=== PATIENT | female | born 1955 | race Caucasian/White ===

== ENCOUNTER 2022-06-07 13:42 | Inpatient (IN) | payer MEDICARE, OTHER ==
[~2022-06-07] VITALS: Ht 167.6 cm; Wt 43.7 kg
[2022-06-07] MEDS ORDERED: HALOPERIDOL LACTATE 5 MG/1 ML VIAL ONE ×2 (13:45→23:08)
[2022-06-07 14:05] LABS: HEMATOCRIT 41.6 % (31.2-41.9); MEAN CORPUSCULAR HEMOGLOBIN 32.4 uug (24.7-32.8); MEAN CORPUSCULAR VOLUME 93.5 fL (75.5-95.3); PLATELET COUNT (AUTO) 313 K/uL (179-408)
[2022-06-07 14:11] LABS: CARBON DIOXIDE 27 mmol/L (21-32); CHLORIDE 107 mmol/L (98-107); GLUCOSE 167 mg/dL (74-106); POTASSIUM 3.8 mmol/L (3.5-5.1); UREA NITROGEN, BLOOD 15 mg/dL (7-18)
[2022-06-07 14:17] LABS: ALANINE AMINOTRANSFERASE 21 U/L (14-59); ALKALINE PHOSPHATASE 89 U/L (50-136); ASPARTATE AMINOTRANSFERASE 28 U/L (15-37); BILIRUBIN,TOTAL 0.4 mg/dL (0.2-1.0); TOTAL PROTEIN, SERUM 7.5 g/dL (6.4-8.2)
--- NOTE | 2022-06-07 19:42 | NUR ---
Alicia silverio called and will accept the pt for admission.
--- NOTE | 2022-06-07 20:18 | NUR ---
pt with 1 to 1 sitter.
--- NOTE | 2022-06-07 20:41 | NUR ---
pt returned from cat scan.
[2022-06-07] MEDS ORDERED: HALOPERIDOL LACTATE 5 MG/1 ML VIAL IM ONE (23:00)
--- NOTE | 2022-06-07 23:31 | NUR ---
report given to jefry BURCIAGA pt to go to room 330A psych overflow.
[2022-06-08] MEDS ORDERED: MAG HYDROX/AL HYDROX/SIMETH 30 ML LIQUID UDC PO PRN (00:45)
[2022-06-08] MEDS ORDERED: MAGNESIUM HYDROXIDE 30 ML LIQUID UDC PO PRN (00:45)
[2022-06-08] MEDS ORDERED: ACETAMINOPHEN 325 MG TABLET PO PRN (00:45)
--- NOTE | 2022-06-08 00:48 | NUR ---
pt transported to room 330 a on third floor for psych overflow. PATRICA Ta aware of pt's arrival, GIANNA Donis stays with the pt.
--- NOTE | 2022-06-08 00:49 | NUR ---
Received a 66 year old female from er . Pt admitted on 5150 for Gravely disabled. According to the hold. Pt acting in bizarre manner, seeing and talking of things that not real. Pt yelling and screaming and unable to care for her own basic needs or provide for her own basic needs or provide for her own feeding and clothing. Pt concurs with the hold. Upon face to face assessment, pt appears to reflect what is on the hold. pt appears to be anxious ,guarded,dishelved, tense and agitated. Pt is a poor historian and poor insight. Oriented patient about the unit rules. Patient is confused and therefore unable to comprehend to the unit rules or sign paperwork, co-signed with Charge nurse. Vital signs stable. Pt skin assessed. Pt is able to ambulate with standby assist . FDC assessment done. She was anxious and needs redirection from staff. Personal belongings completed.Safety initiated. 1:1 sitter for safety. Advisement and patient rights handbook given. Under the care of Dr. Mina/ Eliud TRAIN CONDUCTOR . Fall precautions observed. Will closely monitor.
[2022-06-08 02:44] VITALS: BP 142/79
--- NOTE | 2022-06-08 06:23 | NUR ---
Pt slept 30 minutes H. Pt in no acute distress. 1: 1 sitter for safety. Pt has episodes of hallucination. Pt needs reorientation. Safety and comfort provided. All needs are met. Will endorse to incoming nurse for continuity of care.
[2022-06-08 06:44] LABS: *BILIRUBIN,URIN NEGATIVE (NEGATIVE); *CLARITY,URINE CLEAR (CLEAR); *COLOR,URINE YELLOW (YELLOW); *KETONES,URINE NEGATIVE (NEGATIVE); *UROBILINOGEN,URINE 0.2 E.U./dl (NORMAL); LEUKOCYTE ESTERASE ,URINE NEGATIVE (NEGATIVE); NITRITE, URINE NEGATIVE (NEGATIVE); UGLUCOSE NEGATIVE (NEGATIVE)
--- NOTE | 2022-06-08 06:47 | NUR ---
Notify Tia Delgado sister of the pt that pt is here on room 330 and vising hours here at the hospital. Called [facility] that pt other paperworks need to be fix. Phoebe Campuzano aware. Will endorse to dayshift nurse.
[2022-06-08 07:09] LABS: *BLOOD, URINE TRACE (NEGATIVE); WBC,URINE 0-3 /HPF (0-3)
[2022-06-08 07:10] LABS: BACTERIA,URINE NONE SEEN /HPF (NONE SEEN); SQUAMOUS EPITHELIAL CELL,UR FEW /HPF (NONE SEEN)
[2022-06-08 07:30] VITALS: BP 125/68
[2022-06-08 07:32] LABS: *AMPHETAMINE, URINE NEGATIVE (NEGATIVE); *CANNABINOID, URINE NEGATIVE (NEGATIVE); *COCCAINE, URINE NEGATIVE (NEGATIVE); *OPIATE, URINE NEGATIVE (NEGATIVE); *PHENCYCLIDINE SCREEN,URINE NEGATIVE (NEGATIVE)
[2022-06-08] MEDS: LORAZEPAM 1 MG TABLET PO PRN ×2 (11:56→22:41)
[2022-06-08] MEDS ORDERED: OLANZAPINE 10 MG VIAL IM ONE ×2 (12:15→18:00)
--- NOTE | 2022-06-08 12:33 | NUR ---
Patient aggressive and attempting to jump on bed, whilst yelling and screaming at staff. Dr. Mina notified. Appropriate orders placed. Zyprexa administered. Patient now resting in bed.
[2022-06-08] MEDS: GLUCERNA SHAKE 237 ML CAN PO SCH ×2 (14:15→16:08)
[2022-06-08] MEDS: PROTEIN SUPPLEMENT (PROSTAT) 30 ML LIQUID PO SCH ×2 (14:15→16:08)
[2022-06-08] MEDS: QUETIAPINE FUMARATE 25 MG TABLET PO SCH ×2 (14:19→20:53)
[2022-06-08 17:04] VITALS: BP 159/80
--- NOTE | 2022-06-08 18:27 | NUR ---
Patient confused and needing constant reorientation. Patient hallucinating during shift, and attempting to get out of room. Patient caught on top of bed yelling at staff twice during shift. Dr. Mina notified and appropriate medicinal interventions performed. Bed left in lowest position. Comfort measures provided. Patient is 1:1. Will endorse information to PM nurse.
--- NOTE | 2022-06-08 19:55 | NUR ---
RECEIVED PATIENT IN BED. AWAKE, ALERT, ORIENTED TO SELF. NOTED TO BE STARING IN TO SPACE. APPEARS TO BE CALM AT THIS TIME. REORIENTED PATIENT ACCORDINGLY. SISTER AND SITTER AT BED SIDE. PATIENT IS 1:[address] WILL CONTINUE TO MONITOR.
[2022-06-08 20:00] VITALS: BP 126/76
--- NOTE | 2022-06-08 21:40 | NUR ---
STOOL COLLECTED AND SENT DOWN TO LAB. Addendum: 06/09/22 at 0032 by JAE COPE RN DISREGARD WRONG PATIENT
[2022-06-09 04:00] VITALS: BP 122/68
--- NOTE | 2022-06-09 05:55 | NUR ---
PATIENT SLEPT POORLY LAST NIGHT, WITH FREQUENT EPISODES OF RESTLESSNESS AND AGITATION. FREQUENT REORIENTATION DONE. SAFETY AND ASPIRATION PRECAUTIONS DONE. WILL ENDORSE TO DAY SHIFT.
[2022-06-09] MEDS: GLUCERNA SHAKE 237 ML CAN PO SCH ×3 (08:00→18:02)
[2022-06-09] MEDS: QUETIAPINE FUMARATE 25 MG TABLET PO SCH ×4 (09:24→20:41)
[2022-06-09] MEDS: PROTEIN SUPPLEMENT (PROSTAT) 30 ML LIQUID PO SCH ×2 (09:24→18:02)
--- NOTE | 2022-06-09 12:32 | NUR ---
Patient to be transferred to MHU when beds become available. Odette RN notified and will contact when bed becomes available.
--- NOTE | 2022-06-09 14:59 | NUR ---
Patient transferred to MHU.
--- NOTE | 2022-06-09 15:00 | NUR ---
Received pt from 3rd floor [facility]. Pt accepted to room 139B. Pt is anxious, uncooperative and confused. Appears to be having visual hallucinations. MD notified of pt arrival to unit.
--- NOTE | 2022-06-09 15:08 | NUR ---
RONALDO Initial Discharge Note: Pt currently resides at her sister, Tia's home. Per Tia ([phone]), pt cannot return home under her care due to pt's current condition. Tia is agreeable for RONALDO and MD to help pt with continuation of care at a retirement facility. RONALDO will continue to work with pt, family and MD to ensure a safe and proper discharge plan.
--- NOTE | 2022-06-09 15:10 | NUR ---
RONALDO Family Contact: RONALDO contacted pt's sister, Tia ([phone]), and she stated that pt cannot return home under her care due to pt's current condition. Tia is agreeable for RONALDO and to help pt with continuation of care at a fdc facility.
--- NOTE | 2022-06-09 15:22 | NUR ---
pt switched to bed 139A for safety, pt has been given a shower and placed in azul chair. will continue to monitor.
[2022-06-09 16:00] VITALS: BP 128/81
--- NOTE | 2022-06-09 16:34 | NUR ---
GPS: CALLED [facility] FOR PT RECORDS OF ALL DIAGNOSTIC EXAM PERFORMED. PER EMPLOYEE, THEY NEED TO RECEIVE AN AUTHORIZATION LETTER FAX TO THEM AT [phone]. PLACE STAT ON THE FAX.
[2022-06-09] MEDS: LORAZEPAM 1 MG TABLET PO PRN (18:01)
[2022-06-09 20:23] VITALS: BP 102/70
[2022-06-09] MEDS: ZOLPIDEM 5 MG TABLET PO PRN (21:27)
--- NOTE | 2022-06-10 02:04 | NUR ---
Received patient in the Amelia chair, anxious, restless and confused. The patient took some oral fluids but was only willing to eat a few bites of a sandwich. PRN medications were given. The patient was assisted to the bathroom and to bed but became increasingly agitated and stood on top of the bed, fighting with the staff. At that point , the patient was put back in the chair for a short period of time and tolerated it well. At this time the patient is in bed with a one to one sitter and is sleeping soundly. Safety Stratiges are in place and continuing to monitor the patient closely.
[2022-06-10 07:30] VITALS: BP 118/79
[2022-06-10] MEDS: QUETIAPINE FUMARATE 25 MG TABLET PO SCH ×4 (09:00→21:28)
[2022-06-10] MEDS: LORAZEPAM 1 MG TABLET PO PRN ×3 (09:01→21:03)
--- NOTE | 2022-06-10 09:01 | NUR ---
GPS: RECEIVED PT ON BED WITH A SITTER, CONFUSED, WITH INVOLUNTARY ARM MOVEMENT NOTED. PSYCHIATRIST SPOKE WITH PT, ASKING PT TO SIGN AUTHORIZATION FORM TO GATHER ESSENTIAL DIAGNOSTIC TEST FROM [facility] WHERE PT HAD ALL THE TEST DONE PER SISTER. PT OFFERED THE AM MEDS AND ATIVAN TO CALM DOWN PT, PT REFUSED AND SPIT THE MEDS. PT WITH BLANK STARE, UNCONTROLLABLE SHAKING. WILL MONITOR FOR SAFETY.
[2022-06-10] MEDS: PROTEIN SUPPLEMENT (PROSTAT) 30 ML LIQUID PO SCH ×2 (09:30→17:00)
[2022-06-10] MEDS: GLUCERNA SHAKE 237 ML CAN PO SCH ×3 (09:30→17:00)
[2022-06-10] MEDS ORDERED: OLANZAPINE 10 MG VIAL IM ONE (09:45)
--- NOTE | 2022-06-10 11:16 | NUR ---
GPS: PT RECEIVED ON BED WITH SITTER. RECEIVED A REPORT THAT LAST NIGHT PT STOOD UP ON BED AND HAD BIZARRE BEHAVIOR. PT REFUSED THE AM MEDS AND EVEN OFFERED ATIVAN PO. PSYCHIATRIST WAS IN THE UNIT WHEN PT BECAME VERY CONFUSED, INCOHERENT, DISORIENTED, AGITATED, SCREAMING AND YELLING IN THE ROOM. SEEN PT SO ANXIOUS AND HAVING UNCONTROLLABLE BEHAVIOR AND MIGHT COMPROMISE THE SAFETY OF PT. ENVIRONMENTAL MODIFICATION AND 1:1 COMPANIONSHIP MADE. PSYCHIATRIST ORDERED ZYPREXA 5MG IM AND TOLERATED WELL BY PT, WILL CONTINUE TO MONITOR AND EMPHASIZE SAFETY PRECAUTIONS.
--- NOTE | 2022-06-10 12:27 | NUR ---
GPS: PSYCHIATRIST ISSUED 5250 HOLD FOR [facility] HEARING WITH PROBABLE CAUSE OF GRAVE DISABILITY ONLY. PT GIVEN A COPY BUT PT WAS CONFUSED.
--- NOTE | 2022-06-10 18:06 | NUR ---
GPS: CRISTEL, SISTER OF PT CAME AND PER PSYCHIATRIST TO TRY TO ACQUIRE AN AUTHORIZATION FROM THE PT TO GET MEDICAL RECORDS FROM [facility]. EXPLAINED TO PT REGARDING THE AUTHORIZATION AND WAS ABLE TO OBTAIN A VERBAL AUTHORIZATION AGREEMENT FROM PT, WITNESSED BY SISTER CRISTEL WITH SIGNATURE ON FORM, ALSO WITNESSED BY SYSTEMS ANALYSIS MANAGER AND ANOTHER STAFF. PT WITH 3 VISITORS CAME. PT IS CALM WHILE ON THE PROCESS OF OBTAINING THE VERBAL AUTHORIZATION.
--- NOTE | 2022-06-10 23:21 | NUR ---
RECEIVED PATIENT IN HER ROOM IN BED. SHE IS NOTED SLEEPING BUT EASILY AROUSABLE. SHE IS NOTED A/O X 1 CALM BUT CONFUSED. SHE IS UNABLE TO HAVE A MEANINGFUL CONVERSATION WITH THIS AUTOMOBILE TRAVEL CLUB COUNSELOR. PATIENT'S V/S ARE STABLE. SAFETY AND FALL PRECAUTION ARE IN PLACE. SHE IS REASSURED FOR HER SAFETY. PO FLUIDS AND SNACKS WERE GIVEN TO PATIENT. WILL CONTINUE TO MONITOR.
[2022-06-11] MEDS: LORAZEPAM 1 MG TABLET PO PRN ×3 (04:12→19:43)
--- NOTE | 2022-06-11 06:22 | NUR ---
Patient slept for approx 8hrs through the night. She continue confused. Patient unable to have a meaningful conversation with this technical report writer. She was able to drink 1/2 bottle of glucerna but refused anything else. Will continue to monitor.
[2022-06-11] MEDS ORDERED: HALOPERIDOL LACTATE 5 MG/1 ML VIAL IM STA (07:47)
--- NOTE | 2022-06-11 07:54 | NUR ---
LATE ENTRY: Just entered verbal order received from ER Dr. Cobb for 5mg Haldol IM given in ER on 06/07/22 at 1345. Med administered at 1350, 06/07/22.
[2022-06-11 08:09] VITALS: BP 112/74
[2022-06-11] MEDS: GLUCERNA SHAKE 237 ML CAN PO SCH ×3 (08:57→16:51)
[2022-06-11] MEDS: QUETIAPINE FUMARATE 25 MG TABLET PO SCH ×4 (08:57→20:34)
[2022-06-11] MEDS: PROTEIN SUPPLEMENT (PROSTAT) 30 ML LIQUID PO SCH ×2 (08:57→16:51)
[2022-06-11 10:53] LABS: HEMATOCRIT 45.5 % (31.2-41.9); MEAN CORPUSCULAR HEMOGLOBIN 31.8 uug (24.7-32.8); PLATELET COUNT (AUTO) 278 K/uL (179-408)
[2022-06-11 11:05] LABS: BILIRUBIN,DIRECT 0.2 mg/dL (0.0-0.2); BILIRUBIN,TOTAL 0.8 mg/dL (0.2-1.0); CREATININE 0.8 mg/dL (0.6-1.3); MAGNESIUM 2.1 mg/dL (1.8-2.4); PHOSPHOROUS 4.3 mg/dL (2.5-4.9); POTASSIUM 3.7 mmol/L (3.5-5.1); TOTAL PROTEIN, SERUM 7.9 g/dL (6.4-8.2)
--- NOTE | 2022-06-11 16:00 | NUR ---
Pt was presenting with pulse rate 130, BP within normal limits. Body jerks/ twitching and restlessness visible. MD Weiss notified. EKG completed per MD order. Sinus tachycardia noted. MD notified of results. Will administer medications and reassess.
[2022-06-11 16:14] VITALS: BP 114/79
[2022-06-11] MEDS ORDERED: LORAZEPAM 2 MG/1 ML VIAL IM ONE (16:45)
--- NOTE | 2022-06-11 16:45 | NUR ---
Received verbal order for pt to receive Ativan 1mg IM one time dose for agitation and aggressive behavior. Pt spits out and punches back at sister at bedside and nursing staff. Will reassess pt and closely monitor.
[2022-06-11] MEDS ORDERED: IV NORMAL SALINE 500 ML IV ONE ×2 (19:00→23:15)
--- NOTE | 2022-06-11 19:03 | NUR ---
IV NS 500cc bolus administered per MD Weiss. Per safety protocol, sitter at bedside at this time for the duration of IV infusion. Will reassess HR after completion of bolus and notify .
--- NOTE | 2022-06-11 19:48 | NUR ---
IV bolus completed, rechecked pulse rate. 112bpm. Notified MD. IV access still in place but IV pump removed from pt room. Endorsed to night time nanny to closely monitor and reassess pulse rate in 30 minutes and notify of results to MD. IV in place until Dr. Weiss further instructs with plan of care.
--- NOTE | 2022-06-11 21:00 | NUR ---
Received patient in her bed, she is noted confused, restless, fidgeting, she is unable to have a meaningful conversation with this information writer. IV bolus 500ml NS was done at about 1945. Ativan 1mg po prn was given for restless. she was also given seroquel 25mg QHS. Her B/S were rechecked and are as followed: B/P 138/75 HR 125 O2 sat 95%. Alicia Weiss was notified and she stated to recheck her HR when patient is calm or sleeping. Will continue to push and encourage to drink fluids. will continue to monitor closely.
--- NOTE | 2022-06-11 22:15 | NUR ---
patient noted less restless but still fidgeting. her HR is between 122 to 127. Alicia Weiss notified and she stated to rechecks when patient is sleeping. will continue to monitor.
--- NOTE | 2022-06-11 22:47 | NUR ---
patient is calm and sleeping. her HR is 118. DL Weiss was notified and new order obtained to administer another 500ml NS bolus. Order noted. will continue to monitor.
[2022-06-12] MEDS: ZOLPIDEM 5 MG TABLET PO PRN (00:17)
--- NOTE | 2022-06-12 00:45 | NUR ---
IVF 500ml NS Bolus one time order was done, Patient tolerated well, She is no distress. HR continue between 117 to 120bpm. Will continue to monitor closely.
[2022-06-12] MEDS: GLUCERNA SHAKE 237 ML CAN PO SCH ×3 (08:00→16:27)
[2022-06-12] MEDS ORDERED: risperiDONE 0.5 MG TABLET PO SCH ×2 (09:00→21:00)
[2022-06-12] MEDS: PROTEIN SUPPLEMENT (PROSTAT) 30 ML LIQUID PO SCH ×2 (09:00→16:27)
[2022-06-12] MEDS: risperiDONE-M 0.5 MG TAB.RAPDIS PO SCH ×2 (09:38→16:26)
--- NOTE | 2022-06-12 11:07 | NUR ---
GPS: Nursing Notes: Regarding Fax To [facility]: Staff called [facility], Medical Record, spoke with Alia and stated that they never received a request from [facility] regarding patient's medical records, Staff faxed to [facility], Medical Records - fax # , phone # , option # [phone], continue with treatment plan.
[2022-06-12] MEDS ORDERED: levETIRAcetam IV 1,500 MG in IV DEXTROSE 5% 100 ML IV SCH (12:15)
--- NOTE | 2022-06-12 12:25 | NUR ---
GPS: Nursing Notes: Second request for [facility]: Staff faxed to [facility], request for lumbar puncture and discharge notes per DL Weiss order at fax # ; office # option # [phone], continue with treatment plan.
[2022-06-12] MEDS ORDERED: levETIRAcetam 500 MG TABLET PO ONE (13:00)
--- NOTE | 2022-06-12 14:42 | NUR ---
GPS: Nursing Notes: Thought Disorder: Patient is awake and responding to her name by moving her head when calling her, resistant with nursing care, paranoid behavior, responding to internal stimuli by grabbing the air and shouting to unseen others, internally preoccupied, refusing her medications, refusing to eat or drink, spitting out her medication, spitting out her food, closing her mouth and tightening her lips, gets easily irritable and paranoid when assisting her, redirected during shift, but unable to follow directions, overly disruptive by shouting at times, unable to formulate a viable plan for self care, unkempt appearance, continue to monitor for safety, continue with treatment plan.
[2022-06-12] MEDS ORDERED: levETIRAcetam 500 MG/5 ML LIQUID UDC PO ONE (15:30)
[2022-06-12 16:18] VITALS: BP 152/78
[2022-06-12 19:59] VITALS: BP 139/82
[2022-06-12] MEDS: ATORVASTATIN 20 MG TABLET PO SCH (20:18)
[2022-06-12] MEDS: MIRTAZAPINE 15 MG TABLET PO SCH (20:19)
[2022-06-12] MEDS ORDERED: risperiDONE-M 0.5 MG TAB.RAPDIS PO SCH (21:00)
[2022-06-12] MEDS: levETIRAcetam 500 MG/5 ML LIQUID UDC PO SCH (21:17)
[2022-06-12] MEDS ORDERED: levETIRAcetam 500 MG TABLET PO SCH (22:00)
--- NOTE | 2022-06-13 04:03 | NUR ---
GPS NOTES: Patient received in bed, awake and staring at the ceiling responding to internal stimuli. Patient responsive to name, A&0x1. She is noted to be paranoid and fearful when approached, mumbling incoherently. Unable to make meaningful conversation as she is pre occupied with hallucinations and delusions. Patient is noted to be combative when providing care by staff. Patient unable to take directions and be presented with reality. Medications administered was spat out. Attempt to give fluids however patient is resistant. Patient when awake is agitated, constantly moving around her bed, removing clothes and kicking the wall. Unable to give PRN as order d/t patient refusal with medications. patient intermittently sleeping during shift. No distress observed. Frequent monitoring in place, side rails up for safety.
[2022-06-13 07:30] VITALS: BP 126/96
[2022-06-13] MEDS: GLUCERNA SHAKE 237 ML CAN PO SCH ×3 (08:00→16:02)
[2022-06-13] MEDS: risperiDONE-M 0.5 MG TAB.RAPDIS PO SCH ×3 (08:15→20:25)
[2022-06-13] MEDS: levETIRAcetam 500 MG/5 ML LIQUID UDC PO SCH ×2 (08:15→20:20)
[2022-06-13] MEDS: PROTEIN SUPPLEMENT (PROSTAT) 30 ML LIQUID PO SCH ×2 (08:15→16:03)
--- NOTE | 2022-06-13 12:17 | NUR ---
GPS: Nursing Notes: Thought Disorder: Patient is awake and responding to her name by looking when calling her name, impaired judgment, poor insight, disorganized, restless on her bed, episodes of kicking the wall, internally preoccupied, mumbling to unseen others, refusing to eat and drink, paranoid behavior, unpredictable behavior, unable to formulate a viable plan for self care, disruptive by shouting at times, spitting her food, closing her mouth and tightening her lips, talking incoherently, staring at the ceiling at times, continue to monitor for safety, continue with treatment plan.
--- NOTE | 2022-06-13 14:27 | NUR ---
Firearms Report: Private Branch Exchange Installer completed and submitted a [employer] firearms report for 5150 grave disability certifications. A copy of report has been placed in patient chart.
[2022-06-13] MEDS: LORAZEPAM 1 MG TABLET PO PRN ×2 (14:29→21:29)
[2022-06-13 15:28] VITALS: BP 114/90
[2022-06-13 20:01] VITALS: BP 132/88
[2022-06-13] MEDS: ATORVASTATIN 20 MG TABLET PO SCH (20:21)
[2022-06-13] MEDS: MIRTAZAPINE 15 MG TABLET PO SCH (20:21)
--- NOTE | 2022-06-14 05:22 | NUR ---
Patient slept 3.30 hours. Most of the night patient was restless , kicking and moving around in the bed. At start of the shift, this marine underwriter was able to give a small amount oral fluids to the patient with assistance and encouragement. Edilia care provided as needed . The patient is combative with the staff providing care. Safety stratiges are in place and frequent monitor continues. Poor intake of food and fluids noted. Communication is a struggle and the patient is unable to answer questions or let needs known. VS are stable at this time.
[2022-06-14 06:37] LABS: HEMATOCRIT 46.4 % (31.2-41.9); MEAN CORPUSCULAR HEMOGLOBIN 31.4 uug (24.7-32.8); MEAN CORPUSCULAR VOLUME 93.3 fL (75.5-95.3); PLATELET COUNT (AUTO) 200 K/uL (179-408)
[2022-06-14 06:48] LABS: CREATININE 0.7 mg/dL (0.6-1.3); MAGNESIUM 2.2 mg/dL (1.8-2.4); PHOSPHOROUS 3.7 mg/dL (2.5-4.9); POTASSIUM 3.6 mmol/L (3.5-5.1)
[2022-06-14 07:30] VITALS: BP 116/68
[2022-06-14] MEDS: GLUCERNA SHAKE 237 ML CAN PO SCH ×3 (08:00→17:00)
[2022-06-14] MEDS: PROTEIN SUPPLEMENT (PROSTAT) 30 ML LIQUID PO SCH ×2 (09:00→17:00)
[2022-06-14] MEDS: risperiDONE-M 0.5 MG TAB.RAPDIS PO SCH ×3 (09:38→21:00)
[2022-06-14] MEDS: levETIRAcetam 500 MG/5 ML LIQUID UDC PO SCH ×2 (09:38→21:00)
[2022-06-14 16:00] VITALS: BP 118/94
--- NOTE | 2022-06-14 16:55 | NUR ---
Received patient awake in her room. Pt. is anxious, confused, disoriented, agitated and combative at times, withdrawn, flat, mute. Patient refuses meals and ensure. Total care. Reassurance given. Fall and precautions implemented.
[2022-06-14] MEDS ORDERED: IV NS 1000 ML 1,000 ML IV ONE (17:30)
--- NOTE | 2022-06-14 18:45 | NUR ---
Honey Blender was informed at 18:38 about patient's physical and mental status of being confused, flat, not eating, or taking fluids, also labs were informed and INTERIOR DESIGN ASSISTANT will see the patient later for further orders.
--- NOTE | 2022-06-14 20:00 | NUR ---
Received patient in the hallway. She is noted sitting in a bienvenido chair. Patient is confused. She is responsive in no acute distress. V/S are stable. she is unable to have a meaningful conversation this health underwriter. Safety and fall precaution are in place. will continue to monitor.
--- NOTE | 2022-06-14 20:15 | NUR ---
patient was taken to radiology dept to have a CT scan of the brain. She was accompanied by CASH CHECKER.
[2022-06-14 20:22] VITALS: BP 104/70
--- NOTE | 2022-06-14 20:30 | NUR ---
Patient retuned to the unit. she had a CT scan done. Will continue to monitor.
[2022-06-14] MEDS: MIRTAZAPINE 15 MG TABLET PO SCH (21:00)
[2022-06-14] MEDS: ATORVASTATIN 20 MG TABLET PO SCH (21:00)
--- NOTE | 2022-06-14 21:45 | NUR ---
New IV was placed on her left hand posterior aspect. IV NS infusing at 100ml/hr per Dr Chirinos. V/S: B/P 105/65mmhg HR 117 and O2 sat 99%. patient in no acute distress. will continue to monitor.
--- NOTE | 2022-06-14 22:00 | NUR ---
Patient refused all her QHS medication. she refused PO fluids and snacks. IV NS is infusing. patient in no acute distress. will continue to monitor.
[2022-06-14 23:23] VITALS: BP 107/77
--- NOTE | 2022-06-15 00:12 | NUR ---
NS IS INFUSING. PATIENT IS NOTED RESTLESS. HER V/S ARE B/P 98/68, HR 118 AND O2SAT 96% WILL CONTINUE TO MONITOR.
--- NOTE | 2022-06-15 02:37 | NUR ---
IV Fluids NS continue infusing, patient in no acute distress. V/S: B/P 110/72, HR 108, O2 sat 97%. will continue to monitor.
[2022-06-15 03:49] LABS: *BILIRUBIN,URIN 1+ (NEGATIVE); *BLOOD, URINE 2+ (NEGATIVE); *CLARITY,URINE CLOUDY (CLEAR); *COLOR,URINE YELLOW (YELLOW); *KETONES,URINE 1+ (NEGATIVE); *UROBILINOGEN,URINE 0.2 E.U./dl (NORMAL); LEUKOCYTE ESTERASE ,URINE 1+ (NEGATIVE); NITRITE, URINE NEGATIVE (NEGATIVE); PH,URINE 5.5 (5.0-8.0); UGLUCOSE NEGATIVE (NEGATIVE)
[2022-06-15 05:31] LABS: BACTERIA,URINE FEW /HPF (NONE SEEN); RBC,URINE 50-80 /HPF (0-3); SQUAMOUS EPITHELIAL CELL,UR FEW /HPF (NONE SEEN)
[2022-06-15 07:30] VITALS: BP 119/67
[2022-06-15] MEDS: GLUCERNA SHAKE 237 ML CAN PO SCH ×2 (08:00→12:00)
[2022-06-15] MEDS: risperiDONE-M 0.5 MG TAB.RAPDIS PO SCH (09:00)
[2022-06-15] MEDS ORDERED: CEFTRIAXONE 1 G VIAL IM ONE ×2 (09:00→10:00)
[2022-06-15] MEDS: levETIRAcetam 500 MG/5 ML LIQUID UDC PO SCH (09:00)
[2022-06-15] MEDS: PROTEIN SUPPLEMENT (PROSTAT) 30 ML LIQUID PO SCH (09:00)
--- NOTE | 2022-06-15 13:59 | NUR ---
PATIENT IS CONFUSED AND DISORIENTED ,WILL TRANSFER TO MED/SURG FOR IV HYDRATION AND ANTIBIOTIC,REPORT GIVEN TO RN.
--- NOTE | 2022-06-15 14:32 | NUR ---
RONALDO Family Contact: RONALDO spoke with pt's sister, Tia ([phone]) who is agreeable to a correction facility upon discharge due to Tia stating that she cannot take care of the pt under her current condition upon discharge. RONALDO will continue to work with Tia and to refer pt to facilities for safe and proper continuation of care.
[2022-06-15] MEDS ORDERED: RISP1TAB7 PO (15:54)
[2022-06-15] MEDS ORDERED: LORA0.5T48 PO (15:54)
[2022-06-15] MEDS ORDERED: PROT946L PO (15:54)
[2022-06-15] MEDS ORDERED: MIRT-121 PO (15:54)
[2022-06-15] MEDS ORDERED: NUT.237L36 PO (15:54)
[2022-06-15] MEDS ORDERED: MAG-79 PO (15:54)
[2022-06-15] MEDS ORDERED: MAGN400O6 PO (15:54)
[2022-06-15] MEDS ORDERED: CEPH500C2 PO (15:54)
[2022-06-15] MEDS ORDERED: ATOR20TA PO (15:54)
[2022-06-15] MEDS ORDERED: RISP0.5T5 PO (15:54)
[2022-06-15] MEDS ORDERED: ACET-2154 PO (15:54)
[2022-06-15] MEDS ORDERED: LEVE1000 PO (15:54)
[2022-06-16] MEDS ORDERED: CEphaleXIN 500 MG CAPSULE PO SCH (09:00)
[2022-06-17] MEDS ORDERED: RISP1TAB7 PO (16:48)
[2022-06-17] MEDS ORDERED: PANT40TA2 PO (16:48)
[2022-06-17] MEDS ORDERED: LEVE1000 PO (16:48)
[2022-06-17] MEDS ORDERED: MIRT-121 PO (16:48)
[2022-06-18] MEDS ORDERED: LORA-259 PO (07:29)
== END 2022-06-15 14:06 | disposition short-term general hospital (02) | DRG 885 ==
LOC: ER 13:43 → GPSOV3 23:42 → GPS 06-09 15:04
PROVIDERS: ADMIT Psychiatry & Neurology Psychiatry; ATTEND Nurse Practitioner Acute Care
DX: F29 Unspecified psychosis not due to a substance or known physiological condition (principal); F05 Delirium due to known physiological condition; N17.9 Acute kidney failure, unspecified; G92.9 Unspecified toxic encephalopathy; E44.0 Moderate protein-calorie malnutrition; N39.0 Urinary tract infection, site not specified; Z68.1 Body mass index [BMI] 19.9 or less, adult; N83.202 Unspecified ovarian cyst, left side; E78.5 Hyperlipidemia, unspecified; E86.0 Dehydration; F41.9 Anxiety disorder, unspecified; Z73.6 Limitation of activities due to disability; D72.829 Elevated white blood cell count, unspecified; M62.50 Muscle wasting and atrophy, not elsewhere classified, unspecified site; G31.9 Degenerative disease of nervous system, unspecified; F03.90 Unspecified dementia, unspecified severity, without behavioral disturbance, psychotic disturbance, mood disturbance, and anxiety; F31.9 Bipolar disorder, unspecified; Z20.822 Contact with and (suspected) exposure to COVID-19
CPT/HCPCS: 36415; 70450; 71045; 71250; 73110; 83735; 84100; 85025; 85610; 86592; 87086; 87806; 93005; 97161; A4663; C1758; J0696; J1630; J2060; J2358; J7040

== ENCOUNTER 2022-06-15 15:05 | Inpatient (IN) | payer MEDICARE, OTHER ==
[~2022-06-15] VITALS: Ht 167.6 cm; Wt 43.5 kg
--- NOTE | 2022-06-15 14:15 | NUR ---
RECEIVED PATINE 66 YEARS OLD FEMALE FROM THE [facility] BY FREEDOM/CHAIR PLACED INTO BED WITH DX OF DEHYDRATION AND UTI PLACED INTO BED FIXED AND MADE COMFORTABLE PATIENT IS CONFUSED AND DISORIENTED OPENS EYES WIDE AND MAKES SOME INCOHERENT SOUNDS ALL NEEDS ANTICIPATED AND SATISFIED.ON ROOM AIR WITH NO SHORTNESS OF BREATH AT THIS TIME.SHE HAS SPASTIC MOVEMENTS AT RISK FOR FALLS SHE HAS VERY LOW SHAYY SCORE BUT AT RISKS FOR FALL SO FIRST STEP ARIEL NOT ORDERED AT THIS TIME SHE IS INCONTINENT OF BLADDER DAYSI CARE DONE MADE COMFORTABLE WILL CONTINUE TO OBSERVE.
[2022-06-15 15:00] VITALS: BP 141/81
[2022-06-15] MEDS ORDERED: REMEDY ESSENTIAL ZINC PASTE 113 GM TP PRN (15:45)
[2022-06-15] MEDS ORDERED: HYDROCODONE/APAP 5-325MG TABLET PO PRN (15:45)
[2022-06-15] MEDS ORDERED: ONDANSETRON 4 MG/2 ML VIAL IV PRN (15:45)
[2022-06-15] MEDS ORDERED: ACETAMINOPHEN 325 MG TABLET PO PRN (15:45)
[2022-06-15] MEDS ORDERED: MORPHINE SULFATE 2 MG/1 ML DISP.SYRIN IV PRN (15:45)
[2022-06-15] MEDS ORDERED: TEMAZEPAM 15 MG CAPSULE PO PRN (15:45)
[2022-06-15] MEDS ORDERED: MAGNESIUM HYDROXIDE 30 ML LIQUID UDC PO PRN (15:45)
[2022-06-15] MEDS ORDERED: MAG-79 PO (15:54)
[2022-06-15] MEDS ORDERED: LEVE1000 PO (15:54)
[2022-06-15] MEDS ORDERED: RISP0.5T5 PO (15:54)
[2022-06-15] MEDS ORDERED: MAGN400O6 PO (15:54)
[2022-06-15] MEDS ORDERED: PROT946L PO (15:54)
[2022-06-15] MEDS ORDERED: NUT.237L36 PO (15:54)
[2022-06-15] MEDS ORDERED: LORA0.5T48 PO (15:54)
[2022-06-15] MEDS ORDERED: ATOR20TA PO (15:54)
[2022-06-15] MEDS ORDERED: ACET-2154 PO (15:54)
[2022-06-15] MEDS ORDERED: RISP1TAB7 PO (15:54)
[2022-06-15] MEDS ORDERED: CEPH500C2 PO (15:54)
[2022-06-15] MEDS ORDERED: MIRT-121 PO (15:54)
[2022-06-15] MEDS: IV D5 1/2 NS 1000 ML 1,000 ML IV PRN ×2 (16:53→23:51)
[2022-06-15 17:00] VITALS: BP 137/78
[2022-06-15] MEDS: LORAZEPAM 2 MG/1 ML VIAL IV PRN (17:11)
--- NOTE | 2022-06-15 17:24 | NUR ---
IVF IN PROGRESS ORDERED SHE HAS MITTEN ON HER RIGHT HAND TO PREVENT HER FROM PULLING OUT TUBES CHECKED AND REPOSITIONED.
[2022-06-15 20:00] VITALS: BP 113/65
[2022-06-15] MEDS: REMEDY ESSENTIAL ZINC PASTE 113 GM TOP SCH (20:17)
[2022-06-16] MEDS: LORAZEPAM 2 MG/1 ML VIAL IV PRN ×2 (00:23→11:02)
--- NOTE | 2022-06-16 00:25 | NUR ---
PATIENT AWAKE IN BED. VERY RESTLESS AND AGITATED. PATIENT GIVEN ATIVAN 1MG IV PRN PER RN. VS WNL. UNABLE TO GIVE AM PROTONIX. PATIENT IS TOO SLEEPY. ALL NEEDS ATTENDED. WILL CONTINUE TO MONITOR AND ASSESS.
[2022-06-16 04:00] VITALS: BP 118/62
[2022-06-16] MEDS: PANTOPRAZOLE SODIUM 40 MG TABLET.DR PO SCH (06:12)
[2022-06-16] MEDS: IV D5 1/2 NS 1000 ML 1,000 ML IV PRN ×2 (06:12→22:00)
[2022-06-16 06:24] LABS: HEMATOCRIT 43.3 % (31.2-41.9); MEAN CORPUSCULAR HEMOGLOBIN 31.7 uug (24.7-32.8); MEAN CORPUSCULAR VOLUME 94.3 fL (75.5-95.3); PLATELET COUNT (AUTO) 163 K/uL (179-408)
[2022-06-16 07:02] LABS: CREATININE 0.7 mg/dL (0.6-1.3); PHOSPHOROUS 2.7 mg/dL (2.5-4.9); POTASSIUM 3.7 mmol/L (3.5-5.1)
[2022-06-16] MEDS ORDERED: HOME MED MISCELLANEOUS XX SCH (08:15)
[2022-06-16] MEDS ORDERED: MAGNESIUM HYDROXIDE 30 ML LIQUID UDC PO PRN (08:15)
[2022-06-16] MEDS: levETIRAcetam 500 MG/5 ML LIQUID UDC PO SCH ×2 (08:36→21:20)
[2022-06-16] MEDS: REMEDY ESSENTIAL ZINC PASTE 113 GM TOP SCH ×2 (08:37→21:20)
[2022-06-16] MEDS ORDERED: risperiDONE 0.5 MG TABLET PO SCH (09:00)
[2022-06-16] MEDS ORDERED: levETIRAcetam 500 MG TABLET PO SCH (09:00)
[2022-06-16] MEDS ORDERED: CEFTRIAXONE 1 G in IV DEXTROSE 5% 50 ML IV SCH (09:00)
[2022-06-16] MEDS ORDERED: risperiDONE-M 0.5 MG TAB.RAPDIS PO SCH (09:00)
[2022-06-16] MEDS ORDERED: PROTEIN SUPPLEMENT (PROSTAT) 30 ML LIQUID PO SCH (09:00)
[2022-06-16] MEDS ORDERED: GLUCERNA 1.2 1000ML LIQUID PO SCH (12:00)
[2022-06-16 12:04] VITALS: BP 111/74
[2022-06-16] MEDS: GLUCERNA SHAKE 237 ML CAN PO SCH ×2 (14:06→18:12)
[2022-06-16] MEDS: PROTEIN SUPPLEMENT (PROSTAT) 30 ML LIQUID PO SCH ×2 (14:06→18:13)
[2022-06-16 16:21] VITALS: BP 116/82
[2022-06-16] MEDS: risperiDONE-M 0.5 MG TAB.RAPDIS PO SCH ×2 (18:13→21:20)
[2022-06-16 20:25] VITALS: BP 121/61
[2022-06-16] MEDS ORDERED: risperiDONE 1 MG TABLET PO SCH ×2 (21:00)
[2022-06-16] MEDS: MIRTAZAPINE 15 MG TABLET PO SCH (21:20)
[2022-06-16] MEDS: ATORVASTATIN 20 MG TABLET PO SCH (21:21)
[2022-06-17 04:00] VITALS: BP 131/65
[2022-06-17] MEDS: PANTOPRAZOLE SODIUM 40 MG TABLET.DR PO SCH (06:42)
--- NOTE | 2022-06-17 06:42 | NUR ---
PATIENT ASLEEP IN BED. EASILY AROUSABLE BUT QUICKLY FALLS BACK TO SLEEP. UNABLE TO GIVE PO PROTONIX AT THIS TIME. ALL NEEDS ATTENDED. WILL CONTINUE TO MONITOR AND ASSESS.
[2022-06-17 06:49] LABS: CREATININE 0.6 mg/dL (0.6-1.3); POTASSIUM 3.5 mmol/L (3.5-5.1)
[2022-06-17] MEDS: GLUCERNA SHAKE 237 ML CAN PO SCH ×3 (08:00→16:53)
[2022-06-17] MEDS: PROTEIN SUPPLEMENT (PROSTAT) 30 ML LIQUID PO SCH ×3 (09:00→16:53)
[2022-06-17] MEDS: levETIRAcetam 500 MG/5 ML LIQUID UDC PO SCH ×2 (09:00→20:51)
[2022-06-17] MEDS: risperiDONE-M 0.5 MG TAB.RAPDIS PO SCH ×3 (09:00→21:00)
[2022-06-17] MEDS: REMEDY ESSENTIAL ZINC PASTE 113 GM TOP SCH ×2 (09:30→21:12)
--- NOTE | 2022-06-17 09:34 | NUR ---
IV INFILTRATED. MIDLINE ORDERED. WAITING FOR MIDLINE NURSE
[2022-06-17] MEDS ORDERED: CEFTRIAXONE 1 G VIAL IM SCH (11:00)
[2022-06-17 11:36] VITALS: BP 115/68
[2022-06-17 15:17] VITALS: BP 108/67
[2022-06-17] MEDS ORDERED: PANT40TA2 PO (16:48)
[2022-06-17] MEDS ORDERED: RISP1TAB7 PO (16:48)
[2022-06-17] MEDS ORDERED: LEVE1000 PO (16:48)
[2022-06-17] MEDS ORDERED: MIRT-121 PO (16:48)
--- NOTE | 2022-06-17 19:30 | NUR ---
Pt is confused. Her sister is in the room. Pt has midline on left upper arm 20 g intact and patent. Also has mitttens on her right hand to prevent pulling out lines. All needs attended. will continue to monitor.
[2022-06-17 20:08] VITALS: BP 137/108
[2022-06-17] MEDS: LORAZEPAM 2 MG/1 ML VIAL IV PRN (20:48)
[2022-06-17] MEDS: ATORVASTATIN 20 MG TABLET PO SCH (20:51)
[2022-06-17] MEDS: MIRTAZAPINE 15 MG TABLET PO SCH (21:00)
--- NOTE | 2022-06-17 21:00 | NUR ---
Pt's sister is requesting for Ativan PO to be prescribed when discharged and pt will be picked up by the ambulance at 0745. MD aware. Per Dr. Chirinos, he will place the order tomorrow at 0700. Sister is aware. Also, the sister requested for pharmacy to be changed to [facility] at [facility].
--- NOTE | 2022-06-17 21:30 | NUR ---
Pt refused all medications given by mouth.
[2022-06-17] MEDS: IV D5 1/2 NS 1000 ML 1,000 ML IV PRN (23:23)
[2022-06-18] MEDS: LORAZEPAM 2 MG/1 ML VIAL IV PRN (04:03)
[2022-06-18 04:15] VITALS: BP 127/75
[2022-06-18] MEDS: PANTOPRAZOLE SODIUM 40 MG TABLET.DR PO SCH (07:00)
[2022-06-18] MEDS ORDERED: LORA-259 PO (07:29)
[2022-06-18] MEDS ORDERED: LORAZEPAM 2 MG/1 ML VIAL IV ONE (08:00)
--- NOTE | 2022-06-18 08:00 | NUR ---
Pt picked up by ambulance in process planned for flight back to [facility]. In flight physician and daughter Joann at bedside discharge instructions given. Verbalized understanding. Gave Ativan prior to d/c as prescribed per DR. LUND Resp 18. Pt is in no acute distress. F/c inserted and draining yellow urine and Midline left arm flushing well. R/A 97%.
== END 2022-06-18 08:10 | disposition home or self-care (01) | DRG 56 ==
LOC: MEDSURG3 15:05
PROVIDERS: ADMIT Nurse Practitioner Acute Care; ATTEND Nurse Practitioner Acute Care
PROC: 05H633Z Insertion of Infusion Device into Left Subclavian Vein, Percutaneous Approach (ICD-10-PCS; principal; 2022-06-17)
PROC: B547ZZA Ultrasonography of Left Subclavian Vein, Guidance (ICD-10-PCS; 2022-06-17)
DX: A81.00 Creutzfeldt-Jakob disease, unspecified (principal); G92.8 Other toxic encephalopathy; F32.A Depression, unspecified; F41.9 Anxiety disorder, unspecified; F29 Unspecified psychosis not due to a substance or known physiological condition; Z88.0 Allergy status to penicillin; E86.0 Dehydration
CPT/HCPCS: 36415; 83735; 84100; 85025; 97161; A4663; G0378; J0696; J2060; J7040

== ENCOUNTER 2022-06-18 14:53 | Emergency (ER) | payer MEDICARE, OTHER ==
[~2022-06-18] VITALS: Ht 157.5 cm; Wt 49.9 kg
[~2022-06-18 14:53] MED LIST: ACET-2154 PO; ATOR20TA PO; CEPH500C2 PO; LEVE1000 PO; LORA-259 PO; LORA0.5T48 PO; MAG-79 PO; MAGN400O6 PO; MIRT-121 PO; NUT.237L36 PO; PANT40TA2 PO; PROT946L PO; RISP0.5T5 PO; RISP1TAB7 PO
[2022-06-18 15:37] LABS: HEMATOCRIT 43.8 % (31.2-41.9); MEAN CORPUSCULAR HEMOGLOBIN 31.2 uug (24.7-32.8); PLATELET COUNT (AUTO) 229 K/uL (179-408)
[2022-06-18] MEDS ORDERED: LORAZEPAM 2 MG/1 ML VIAL IV PRN (15:45)
[2022-06-18 15:53] LABS: CREATININE 0.6 mg/dL (0.6-1.3); POTASSIUM 4.6 mmol/L (3.5-5.1)
[2022-06-18 15:59] LABS: BILIRUBIN,DIRECT 0.3 mg/dL (0.0-0.2); BILIRUBIN,TOTAL 0.8 mg/dL (0.2-1.0); TOTAL PROTEIN, SERUM 7.3 g/dL (6.4-8.2)
[2022-06-18] MEDS: levETIRAcetam IV 1,000 MG in IV DEXTROSE 5% 100 ML IV SCH (16:06)
--- NOTE | 2022-06-18 16:19 | NUR ---
Jovon finished infusing.
--- NOTE | 2022-06-18 18:16 | NUR ---
Pt sleeping in bed, no distress noted.
--- NOTE | 2022-06-18 19:20 | NUR ---
Patient laying on gurny with no distress noted.
[2022-06-19] MEDS ORDERED: levETIRAcetam 500 MG/5 ML VIAL IV ONE (00:16)
[2022-06-19] MEDS: levETIRAcetam IV 1,000 MG in IV DEXTROSE 5% 100 ML IV SCH (00:22)
[2022-06-19] MEDS ORDERED: LORAZEPAM 2 MG/1 ML VIAL ONE (06:40)
--- NOTE | 2022-06-19 06:53 | NUR ---
Patient discharged to home in stable condition with son in law and personal MD to take patient airport. Written and verbal after care instructions given. Family verbalizes understanding of instructions. Stressed follow up or return to ER for worsening s/s.
[2022-06-19 06:54] VITALS: BP 108/72
== END 2022-06-19 06:55 | disposition home or self-care (01) ==
LOC: ER 14:53
DX: F01.50 Vascular dementia, unspecified severity, without behavioral disturbance, psychotic disturbance, mood disturbance, and anxiety (principal); G98.8 Other disorders of nervous system; Z90.81 Acquired absence of spleen; Z88.0 Allergy status to penicillin; Z79.899 Other long term (current) drug therapy
CPT/HCPCS: 99284; 96365; 80076; 80048; 85025; 36415; 96375; J1953; J2060